=== PATIENT | female | born 1935 | race Caucasian/White ===

== ENCOUNTER 2016-12-02 10:07 | Outpatient (CLI) | payer MEDICARE, OTHER ==
[~2016-12-02] VITALS: Ht 157.5 cm; Wt 59.5 kg
[~2016-12-02 10:07] MED LIST: AREDS; ARICEPT10 MG PO; LIPITOR20 MG PO; NAMENDA10 MG PO; NORVASC5 MG PO; SYNTHROID50 MCG PO; TOPROL XL100 MG PO
[2016-12-02 10:47] VITALS: BP 123/81; Ht 157.5 cm; Wt 59.5 kg
--- NOTE | 2016-12-02 11:00 | NUR ---
1053 PATIENT HERE TO RECIEVE A PROLIA INJECTION, HAS HAD BEFORE WITHOUT ADVERSE REACTION VOICED, GIVEN TO RIGHT UPPER ARM SUBQ TISSUE WITHOUT PROBLEMS AT THE SITE NOTED. WILL DISCHARGE HOME WITH COUSIN. STABLE.
== END 2016-12-02 11:00 ==
LOC: D.OPS 10:07
DX: M81.0 Age-related osteoporosis without current pathological fracture (principal)

== ENCOUNTER 2017-06-09 09:30 | Outpatient (CLI) | payer MEDICARE, OTHER ==
[~2017-06-09] VITALS: Ht 157.5 cm; Wt 63.6 kg
[2017-06-09 10:25] VITALS: Ht 157.5 cm; Wt 63.6 kg
--- NOTE | 2017-06-09 10:33 | NUR ---
1020- PROLIA INJECTION GIVEN IN LEFT ARM LOT#: [id number] EXP:07/12
== END 2017-06-09 10:33 | disposition home or self-care (01) ==
LOC: D.OPS 09:30
DX: M81.0 Age-related osteoporosis without current pathological fracture (principal)

== ENCOUNTER 2017-08-18 11:47 | Emergency (ER) | payer MEDICARE, OTHER ==
[2017-06-09 10:25] VITALS: BMI 25.6
== END 2017-08-18 15:06 | disposition home or self-care (01) ==
LOC: D.ER 11:47
DX: S02.40CA Maxillary fracture, right side, initial encounter for closed fracture (principal); S02.81XA Fracture of other specified skull and facial bones, right side, initial encounter for closed fracture; S52.531A Colles' fracture of right radius, initial encounter for closed fracture; W01.0XXA Fall on same level from slipping, tripping and stumbling without subsequent striking against object, initial encounter; Y93.89 Activity, other specified; Y92.9 Unspecified place or not applicable

== ENCOUNTER 2017-08-29 08:45 | Inpatient (IN) | payer MEDICARE, OTHER ==
[~2017-08-29] VITALS: Ht 167.6 cm; Wt 68.0 kg
--- NOTE | ~2017-08-29 | HP ---
PATIENT: LULA HOLLIS MEDICAL RECORD: [id number] ACCOUNT: [id number] LOCATION:D.MS [facility] : 33 ADMISSION DATE: 08/29/17 HISTORY AND PHYSICAL EXAMINATION DATE OF ADMISSION: 08/29/2017 CHIEF COMPLAINT: Fall. HISTORY OF PRESENT ILLNESS: This is an 82-year-old female, who is a resident of [place]. She has had multiple falls recently. She fell on 08/18/2017, and suffered a right Colles' fracture and facial bone fractures. She has severe dementia. She fell again on 08/29/2017, just was not acting her usual self. She was brought in to the Emergency Department. X-rays were okay except CT of the brain done compared with previous on 08/18/2017, showed disproportionate enlargement of the lateral ventricles suggesting normal pressure hydrocephalus. There was a right parietal scalp hematoma without fracture and possibility of NPH. She is admitted and neurosurgery will be consulted. PAST MEDICAL AND SURGICAL HISTORY: She has dementia, hyperlipidemia, hypertension, and hypothyroidism. PAST SURGICAL HISTORY: Cataract repair. ALLERGIES: None known. HOME MEDICATIONS: Include memantine 10 mg 1 pill twice a day, amlodipine 5 mg once a day, donepezil 10 mg once a day, atorvastatin 40 mg once a day, metoprolol XL 100 once a day, and levothyroxine 50 mcg once a day. HABITS: Never smoked. No alcohol or drugs. SOCIAL HISTORY: She is , retired, living in [place]. REVIEW OF SYSTEMS: GENERAL: She is losing weight because she is not remembering to eat anymore. HEENT: No particular sinus or allergy problems. She did have a recent fall and has fractures of facial bones, especially around the right eye. RESPIRATORY: No history of asthma or emphysema. CARDIAC: No chest pain, palpitations, or history of heart disease. GASTROINTESTINAL: No diarrhea, constipation, or reflux. GENITOURINARY: No significant trouble there. MUSCULOSKELETAL: No significant arthritis. Again, she had a recent fall and has a right Colles's fracture and has a splint placed by Dr. Abad. NEUROLOGIC: No migraine headaches. No seizures. She does have dementia. PSYCHIATRIC: No depression or melancholia. PHYSICAL EXAMINATION: VITAL SIGNS: She is afebrile. Blood pressure is fine. Respirations and heart rate are all fine. GENERAL: She is resting comfortably. She is in no acute distress at this time. She is under the influence of Ativan to help with restlessness that she was exhibiting. HEENT: She has fading ecchymosis around the right eye. She has known facial fractures. HISTORY AND PHYSICAL [id number] [place] NECK: Supple. HEART: Regular rate and rhythm without murmur. LUNGS: Clear. ABDOMEN: Soft. EXTREMITIES: She has a splint on her right forearm and wrist. There is no edema noted anywhere. LABORATORY DATA: CK is 89, CK-MB 1.4, troponin less than 0.017. Urinalysis is all okay. CBC with a white count of 14,400, hemoglobin 13.9, hematocrit 42, normal platelets. Basic metabolic panel is all normal except BUN little elevated at 28. Liver functions are all normal. X-ray of the pelvis shows no acute abnormalities. CT of the cervical spine shows no acute fracture or dislocation and CT of the head without contrast compared to last done on 08/18/2017, shows disproportionate enlargement of the lateral ventricles relative to the sulci, which can be seen in the setting of normal pressure hydrocephalus in the proper clinical setting, otherwise no acute intracranial abnormality or significant change since last comparison. ASSESSMENT: 1. Frequent falls. 2. Dementia. 3. Hydrocephalus suggesting possible normal pressure hydrocephalus. PLAN: We will admit. We will get a lumbar puncture including opening pressure. We will consult Dr. Pearson for possible normal pressure hydrocephalus and treatment for that. Other tests and procedures as warranted. TRANSINT:[id number] Voice Confirmation ID: [id number] DOCUMENT ID: [id number] DARRIN GATICA MD at 0749 CC: [id number] DICTATION DATE: 08/30/17 0053 NITRO WORKER: 08/30/17 0257 ADM IN [facility] [address] [place] [address]
[2017-08-29 11:36] LABS: BASOPHILS 0.2 % (0-2); EOSINOPHILS 0.3 % (0-7); HEMATOCRIT 42.2 % (36.0-48.0); HEMOGLOBIN 13.9 g/dL (12-16); IMMATURE GRANULOCYTES 0.3 % (0-5); LYMPHOCYTES 8.5 % (15-50); MCHC 32.9 g/dL (31.0-37.0); MEAN PLATELET VOLUME 9.4 fL (7.4-10.4); MONOCYTES 7.2 % (2-11); NEUTROPHILS 83.5 % (40-80); PLATELET COUNT 298 10x3/uL (130-400); RBC 4.35 10x6/uL (4.00-5.40); RDW 13.5 % (11.5-14.5); WBC 14.4 10x3/uL (4.8-10.8)
[2017-08-29 12:19] LABS: ALBUMIN 3.2 g/dL (3.4-5.0); ALKALINE PHOSPHATASE 81 U/L (46-116); ALT (SGPT) 22 U/L (10-68); BILIRUBIN - TOTAL 0.65 mg/dL (0.2-1.3); CALC OSMOLALITY 295 mosm/kg (275-300); CALCIUM 9.6 mg/dL (8.5-10.1); CHLORIDE - SERUM 105 mmol/L (98-107); CREATININE - SERUM 1.2 mg/dL (0.6-1.3); GLUCOSE 116 mg/dL (74-106); PROTEIN - SERUM 7.1 g/dL (6.4-8.2); SODIUM 145 mmol/L (136-145); UREA NITROGEN 28 mg/dL (7-18); eGFR NON AFRICAN AMERICAN 45 mL/min (90-120)
[2017-08-29 12:30] LABS: CKMB 0.8 U/L (0.0-3.6); CREATINE KINASE 44 UL (21-215)
[2017-08-29 12:40] LABS: TROPONIN-I < 0.017 ng/mL (0.000-0.060)
[2017-08-29 14:44] LABS: APPEARANCE CLEAR (CLEAR); BILIRUBIN NEGATIVE (NEGATIVE); COLOR DK YELLOW (YELLOW); GLUCOSE NEGATIVE (NEGATIVE); KETONE LARGE mg/dL (NEGATIVE); NITRITE NEGATIVE (NEGATIVE); PROTEIN NEGATIVE (NEGATIVE); SPECIFIC GRAVITY 1.015 (1.005-1.020); UROBILINOGEN NORMAL (NORMAL)
[2017-08-29 15:33] LABS: CREATINE KINASE 59 UL (21-215)
[2017-08-29 15:37] LABS: TROPONIN-I < 0.017 ng/mL (0.000-0.060)
[2017-08-29 22:03] LABS: CKMB 1.4 U/L (0.0-3.6); CREATINE KINASE 89 UL (21-215)
[2017-08-29 22:10] LABS: TROPONIN-I < 0.017 ng/mL (0.000-0.060)
[2017-08-30 03:50] LABS: BASOPHILS 0.2 % (0-2); EOSINOPHILS 0.9 % (0-7); HEMATOCRIT 39.4 % (36.0-48.0); HEMOGLOBIN 13.1 g/dL (12-16); IMMATURE GRANULOCYTES 0.3 % (0-5); LYMPHOCYTES 13.9 % (15-50); MCH 31.8 pg (26.0-34.0); MCHC 33.2 g/dL (31.0-37.0); MCV 95.6 fL (80.0-100.0); MEAN PLATELET VOLUME 9.9 fL (7.4-10.4); MONOCYTES 10.5 % (2-11); NEUTROPHILS 74.2 % (40-80); PLATELET COUNT 278 10x3/uL (130-400); RBC 4.12 10x6/uL (4.00-5.40); RDW 13.5 % (11.5-14.5); WBC 11.4 10x3/uL (4.8-10.8)
[2017-08-30 04:19] LABS: CALC OSMOLALITY 280 mosm/kg (275-300); CALCIUM 8.4 mg/dL (8.5-10.1); CARBON DIOXIDE 25.9 mmol/L (21.0-32.0); CHLORIDE - SERUM 105 mmol/L (98-107); CKMB 0.9 U/L (0.0-3.6); CREATINE KINASE 76 UL (21-215); CREATININE - SERUM 0.8 mg/dL (0.6-1.3); GLUCOSE 91 mg/dL (74-106); POTASSIUM - SERUM 3.4 mmol/L (3.5-5.1); SODIUM 140 mmol/L (136-145); TROPONIN-I < 0.017 ng/mL (0.000-0.060); UREA NITROGEN 19 mg/dL (7-18); eGFR NON AFRICAN AMERICAN 72 mL/min (90-120)
[2017-08-30 08:00] VITALS: BP 128/59; BMI 24.2
[2017-08-30 13:45] VITALS: BP 165/62
[2017-08-30 14:00] VITALS: BP 146/50
[2017-08-30 14:12] VITALS: Ht 167.6 cm; Wt 68.0 kg
[2017-08-30 14:15] VITALS: BP 137/54
[2017-08-30 17:13] VITALS: BP 154/58
[2017-08-30 22:12] VITALS: BP 116/53
[2017-08-31 01:36] VITALS: BP 112/64
[2017-08-31 04:46] VITALS: BP 126/56
[2017-08-31 10:33] VITALS: BP 97/45
[2017-08-31 11:35] VITALS: BP 104/56
[2017-08-31 16:18] VITALS: BP 144/57
[2017-08-31 23:49] VITALS: BP 142/53
[2017-09-01 05:25] VITALS: BP 147/51
[2017-09-01 09:27] VITALS: BP 140/53
[2017-09-01 11:34] VITALS: BP 140/60
[2017-09-01 12:26] VITALS: BP 140/60
[2017-09-01 15:42] VITALS: BP 138/62
[2017-09-02 02:43] VITALS: BP 141/73
[2017-09-02 05:13] VITALS: BP 152/72
[2017-09-02 10:02] VITALS: BP 147/54
[2017-09-02 16:30] VITALS: BP 121/46
[2017-09-02 22:06] VITALS: BP 142/62
[2017-09-03 05:40] VITALS: BP 152/72
[2017-09-03 08:21] VITALS: BP 118/68
[2017-09-03 16:23] VITALS: BP 140/56
[2017-09-03 20:30] VITALS: BP 146/50
[2017-09-04 00:30] VITALS: BP 123/53
[2017-09-04 04:30] VITALS: BP 122/45
[2017-09-04 09:14] VITALS: BP 133/40
[2017-09-04 16:11] VITALS: BP 144/61
[2017-09-04 20:00] VITALS: BP 139/58
[2017-09-05] VITALS: BP 126/69
[2017-09-05 04:00] VITALS: BP 149/77
[2017-09-05 08:04] VITALS: BP 148/55
[2017-09-05 12:11] VITALS: BP 139/54
[2017-09-05 16:24] VITALS: BP 141/58
[2017-09-05 22:08] VITALS: BP 116/49
[2017-09-06 04:55] VITALS: BP 184/49
[2017-09-06 07:34] VITALS: BP 150/59
[2017-09-06 12:38] VITALS: BP 123/60
[2017-09-06 15:37] VITALS: BP 149/62
[2017-09-06 22:11] VITALS: BP 142/56
[2017-09-07 01:48] VITALS: BP 144/54
[2017-09-07 05:29] VITALS: BP 126/43
[2017-09-07 08:34] VITALS: BP 134/49
[2017-09-07 12:08] VITALS: BP 131/43
[2017-09-07 15:49] VITALS: BP 138/52
== END 2017-09-07 18:45 | DRG 57 ==
LOC: D.ER 08:45 → D.MS 13:04 → D.SDCHOLD 13:04 → D.ER 19:22 → D.MS 19:22 → D.SDCHOLD 08-30 05:29 → D.MS 08-30 05:29
PROVIDERS: Family Medicine
PROC: B02 Imaging, Central Nervous System, Computerized Tomography (CT Scan) (ICD-10-PCS; principal; 2017-09-02)
DX: G91.2 (Idiopathic) normal pressure hydrocephalus (principal); S00.03XA Contusion of scalp, initial encounter; W18.2XXA Fall in (into) shower or empty bathtub, initial encounter; S05.11XA Contusion of eyeball and orbital tissues, right eye, initial encounter; F03.90 Unspecified dementia, unspecified severity, without behavioral disturbance, psychotic disturbance, mood disturbance, and anxiety; I10 Essential (primary) hypertension; E03.9 Hypothyroidism, unspecified; E78.5 Hyperlipidemia, unspecified; R40.2143 Coma scale, eyes open, spontaneous, at hospital admission; R40.2243 Coma scale, best verbal response, confused conversation, at hospital admission

== ENCOUNTER 2017-09-24 14:50 | Inpatient (IN) | payer MEDICARE, OTHER ==
[~2017-09-24] VITALS: Ht 160 cm; Wt 47.1 kg
--- NOTE | ~2017-09-24 | OP ---
PATIENT NAME: LULA HOLLIS MEDICAL RECORD: [id number] :33 LOCATION:D.MS [id number] ADMISSION DATE:09/24/17 SURGEON: LUDIVINA ASHLEY MD DATE OF OPERATION: 09/24/2017 PREOPERATIVE DIAGNOSIS: Normal pressure hydrocephalus. POSTOPERATIVE DIAGNOSIS: Normal pressure hydrocephalus. PROCEDURE: Creation of ventriculoperitoneal shunt with level I valve. SURGEON: Ludivina Ashley MD DESCRIPTION AND TECHNIQUIE: After induction of general endotracheal anesthesia, the patient was positioned supine on the operating table. The scalp, neck, chest, abdomen were prepped and draped in usual sterile fashion. Three separate skin incisions were carried out, one over the right frontal Kochers point, the second one over the right mastoid and the third just to the left of midline above the umbilicus. A craniotome was used to create a dimitri hole. A counterincision was made over the right mastoid and an incision just by the left umbilicus. Bovie cautery was used to dissect through the subcutaneous fat. The anterior rectus sheath was incised with Metzenbaum scissors. Rectus muscles was spread, posterior rectus sheath was incised, peritoneum was incised as well, and several loops of small bowel were used to identify the peritoneal cavity. Next, a peritoneal catheter was tunneled from the cranial incision to the counterincision and from counterincision to the abdominal incision. Next a brain needle was used to cannulate the right frontal horn of the ventricle. Brisk egress of CSF was accomplished through the brain needle. The ventricular catheter was tunneled through the same tunnel. There was brisk egress of CSF from the peritoneal catheter. Peritoneal catheter was deposited into the peritoneal cavity. The peritoneum was closed with pursestring suture of #3-0 Vicryl suture. The rectus sheath, anterior and posterior were closed with 2-0 Vicryl suture, the subcutaneous layer was closed with 3-0 Vicryl suture, the skin was closed with fernando. At the counterincision, the subdermal layer was closed with interrupted 3-0 Vicryl suture, the skin was closed with fernando. At the cranial incision, the galea was reapproximated with interrupted 2-0 Vicryl suture. The skin was closed with fernando. A sterile dressing was applied to the wound. The patient was awakened in good condition and taken to recovery. All counts were reported as correct. Estimated blood loss was minimal. TRANSINT:[id number] Voice Confirmation ID: [id number] DOCUMENT ID: [id number] LUDIVINA ASHLEY MD at 1134 CC: [id number] DICTATION DATE: 10/07/17 1110 ORTHOPEDIC RADIOLOGIC TECHNOLOGIST: 10/07/17 1139 DIS IN 10/06/17 [place] [id number] [place] [id number]
--- NOTE | ~2017-09-24 | EC ---
PATIENT:LULA HOLLIS DATE OF SERVICE: 09/24/17 SEX: F MEDICAL RECORD: [id number] DATE OF : 31 LOCATION:D.MS [id number] AGE OF PATIENT: 82 ADMISSION DATE: 09/24/17 REFERRING PHYSICIAN: INTERPRETING PHYSICIAN: JONATHAN CARLIN MD ECHOCARDIOGRAM REPORT ECHO CHARGES CLINICAL DIAGNOSIS: ECHOCARDIOGRAPHIC MEASUREMENTS (adult normal given) AC root (d.<3.7cm) cm LV Septum d (<1.2 cm> cm Valve Excursion cm LV Septum (systole) cm Left Atria (s.<4.0cm> cm LVPW d(<1.2cm) cm RV (d.<2.3cm) cm LVPW (sytole) cm LV diastole(<5.6CM) cm MV E-F(>70mm/sec) cm LV systole cm LVOT Diameter cm MV exc.(>10mm) cm Est.ejection fraction (50-75%) % Pericardial Effusion DOPPLER: LVIT cm/sec A cm/sec E cm/sec LA cm/sec RVSP mmHg LVOT cm/sec AOP1/2T m/s Asc. Ao cm/sec RVOT cm/sec RA cm/sec PA cm/sec AV Gradient Peak mmHg AV Mean mmHg AV Area cm MV Gradient Peak mmHg MV Mean mmHg MV Area cm COMMENTS: Street Light Repairer Helper: Bridge Engineer: JAVI DATE OF SERVICE: 09/30/2017 Echocardiogram FINDINGS: 1. Left ventricular chamber size is within normal limits. Left ventricular systolic function is normal. Overall ejection fraction estimated at 55%. 2. Left atrium, right atrium, and right ventricular chamber sizes are within normal limits. 3. Valvular structures have normal structure and motion. ECHOCARDIOGRAM REPORT [id number] LULA HOLLIS 4. Doppler interrogation only reveals mild mitral regurgitation, mild tricuspid regurgitation, no other valvular insufficiency or stenosis and pulmonary systolic pressure is normal estimated 30 mmHg. 5. No evidence of pericardial effusion or left ventricular thrombus. TRANSINT:[id number] Voice Confirmation ID: [id number] DOCUMENT ID: [id number] JONATHAN CARLIN MD at 1153 CC: [id number] DICTATION DATE: 09/30/17 1010 CUSTOMER SOLUTIONS SUPERVISOR: 09/30/17 1029 ADM IN [address] [place] [address]
--- NOTE | ~2017-09-24 | CN ---
PATIENT NAME:LULA HOLLIS MEDICAL RECORD: [id number] : 31 LOCATION:D.MS [id number] ADMIT DATE: 09/24/17 ACCOUNT: [id number] CONSULTING PHYSICIAN: JONATHAN CARLIN MD REFERRING PHYSICIAN: DARRIN GATICA MD DATE OF CONSULTATION: 09/30/2017 DIAGNOSES: 1. Nonsustained ventricular tachycardia, 8-beat run, asymptomatic. 2. Frequent falls. 3. Normal pressure hydrocephalus. HISTORY OF PRESENT ILLNESS: Ms. Hollis presents with frequent falls, found to have normal pressure hydrocephalus. She is on telemetry, found to have one 8-beat run of nonsustained ventricular tachycardia. She has normal electrolytes and was asymptomatic with this. REVIEW OF SYSTEMS: The patient reports easy bruising but reports no swollen glands. The patient reports no fever, no night sweats, no significant weight gain, no significant weight loss. No significant exercise tolerance. The patient reports no dry eyes, no irritation, no vision change. Patient reports no difficulty hearing and no ear pain. Patient reports no frequent nose bleeds or nose and sinus problems. Patient reports on arm pain on exertion. No shortness of breath while lying down. No history of heart murmur. Patient reports no cough, no wheezing or coughing up blood. Patient reports no abdominal pain, no vomiting. Normal appetite. No diarrhea and not vomiting blood. No nausea and no constipation. Patient reports no incontinence. No difficulty urinating. No hematuria. No increased frequency. Patient reports no muscle aches. No weakness, no arthralgias, no back pain. No swelling of the extremities. Patient reports no abnormal mole, no jaundice, no rashes. Reports no loss of consciousness. No weakness and no numbness. No seizures, dizziness, or headaches. The patient reports no depression, no sleep disturbance, feeling safe in a relationship and no alcohol abuse. Patient reports on fatigue. Reports no runny nose or sinus pressure. No itching, no hives, and no frequent sneezing. PHYSICAL EXAMINATION: GENERAL APPEARANCE: Well nourished, well developed, appears stated age. Level of distress, comfortable. PSYCHIATRIC: Mental status, alert, normal affect. Orientation, oriented to time, place and person. EYES: Lids and conjunctiva, noninjected. No discharge, no pallor. ENT: Lips, teeth, gums, normal dentition. Oropharynx, no cyanosis, no pallor. NECK: Carotid arteries, bilateral normal upstroke, no bruits, no thrills. JUGULAR VEINS: No jugular venous pressure or distention. CERVICAL LYMPH NODES: Nontender, nonenlarged. THYROID: Not enlarged. Nontender. No nodules. LUNGS: Respiratory effort, unlabored. CHEST: Normal curvature. No thoracic deformity. No chest wall tenderness. Percussion, resonant. Auscultation, clear. No wheezes, no rales, no rhonchi. CARDIOVASCULAR: Precordial exam, nondisplaced. No heaves or pericardial thrills. Rate and rhythm, regular. Heart sounds, normal S1, normal S2. No S3, no gallop, no rub. Systolic murmur, not heard. Diastolic murmur, not heard. EXTREMITIES: No cyanosis, no edema. Peripheral pulses, full and equal in all extremities, except as noted. No bruits appreciated. CONSULT REPORT [id number] LULA HOLLIS ABDOMEN: Soft, nondistended. Normal aorta. No bruit. Nontender. No masses. Liver, nontender, no hepatomegaly. Spleen, nontender, no splenomegaly. MUSCULOSKELETAL: No joint tenderness. No joint swelling. No erythema. NEUROLOGICAL: Normal gait, normal strength, normal tone. SKIN: Warm and dry. OVERAL IMPRESSION: Nonsustained ventricular tachycardia. PLAN: At this time, we will get an echocardiogram, other than that no other cardiac workup treatment is necessary. Continue telemetry. Continue monitoring for any further dysrhythmias. TRANSINT:[id number] Voice Confirmation ID: [id number] DOCUMENT ID: [id number] JONATHAN CARLIN MD at 1153 CC: [id number] DICTATION DATE: 09/30/17219 DIRECTOR OF PARKS AND RECREATION: 09/30/17 025 ADM IN [place] [id number] [facility] [place] [address]
[2017-09-24 16:23] LABS: BASOPHILS 0.3 % (0-2); EOSINOPHILS 0.9 % (0-7); HEMATOCRIT 44.3 % (36.0-48.0); HEMOGLOBIN 14.3 g/dL (12-16); IMMATURE GRANULOCYTES 0.3 % (0-5); LYMPHOCYTES 12.1 % (15-50); MCH 31.4 pg (26.0-34.0); MCHC 32.3 g/dL (31.0-37.0); MCV 97.4 fL (80.0-100.0); MEAN PLATELET VOLUME 10.1 fL (7.4-10.4); MONOCYTES 8.8 % (2-11); NEUTROPHILS 77.6 % (40-80); PLATELET COUNT 230 10x3/uL (130-400); RBC 4.55 10x6/uL (4.00-5.40); RDW 14.4 % (11.5-14.5); WBC 7.6 10x3/uL (4.8-10.8)
[2017-09-24 16:27] LABS: APPEARANCE HAZY (CLEAR); COLOR AMBER (YELLOW); NITRITE NEGATIVE (NEGATIVE)
[2017-09-24 16:28] LABS: BILIRUBIN 1+ (NEGATIVE); GLUCOSE NEGATIVE (NEGATIVE); KETONE LARGE mg/dL (NEGATIVE); PROTEIN TRACE mg/dL (NEGATIVE)
[2017-09-24 16:32] LABS: BACTERIA MODERATE /hpf (NONE SEEN); EPITHELIAL CELLS 0-5 /hpf (0-5); RED CELLS - URINE 0-5 /hpf (0-5); YEAST >1+ /hpf (NONE SEEN)
[2017-09-24 16:37] LABS: ALBUMIN 3.4 g/dL (3.4-5.0); ANION GAP 16.5 mmol/L (8-16); BILIRUBIN - TOTAL 0.9 mg/dL (0.2-1.3); CARBON DIOXIDE 26.2 mmol/L (21.0-32.0); PROTEIN - SERUM 7.6 g/dL (6.4-8.2)
[2017-09-24 16:39] LABS: POTASSIUM - SERUM 2.7 mmol/L (3.5-5.1)
[2017-09-25 05:52] LABS: BASOPHILS 0.7 % (0-2); EOSINOPHILS 3.6 % (0-7); HEMATOCRIT 39.7 % (36.0-48.0); HEMOGLOBIN 12.8 g/dL (12-16); IMMATURE GRANULOCYTES 0.2 % (0-5); LYMPHOCYTES 25.6 % (15-50); MCH 31.4 pg (26.0-34.0); MCHC 32.2 g/dL (31.0-37.0); MCV 97.3 fL (80.0-100.0); MEAN PLATELET VOLUME 9.9 fL (7.4-10.4); NEUTROPHILS 57.9 % (40-80); PLATELET COUNT 202 10x3/uL (130-400); RBC 4.08 10x6/uL (4.00-5.40); RDW 14.5 % (11.5-14.5); WBC 5.8 10x3/uL (4.8-10.8)
[2017-09-25 06:08] LABS: ANION GAP 16.4 mmol/L (8-16); BILIRUBIN - TOTAL 0.7 mg/dL (0.2-1.3); CALCIUM 7.8 mg/dL (8.5-10.1); CARBON DIOXIDE 26.8 mmol/L (21.0-32.0); CREATININE - SERUM 0.8 mg/dL (0.6-1.3); PROTEIN - SERUM 6.3 g/dL (6.4-8.2)
[2017-09-25 06:11] LABS: POTASSIUM - SERUM 3.2 mmol/L (3.5-5.1)
[2017-09-25 14:56] VITALS: BP 174/63
[2017-09-25 22:35] VITALS: BP 122/86
[2017-09-26 01:02] VITALS: BP 140/65
[2017-09-26 06:05] LABS: BASOPHILS 0.4 % (0-2); EOSINOPHILS 2.9 % (0-7); HEMOGLOBIN 12.7 g/dL (12-16); IMMATURE GRANULOCYTES 0.2 % (0-5); MCH 30.7 pg (26.0-34.0); MCHC 31.8 g/dL (31.0-37.0); MCV 96.6 fL (80.0-100.0); MEAN PLATELET VOLUME 10.4 fL (7.4-10.4); MONOCYTES 5.9 % (2-11); NEUTROPHILS 78.6 % (40-80); PLATELET COUNT 214 10x3/uL (130-400); RBC 4.14 10x6/uL (4.00-5.40); RDW 14.4 % (11.5-14.5); WBC 5.6 10x3/uL (4.8-10.8)
[2017-09-26 06:09] VITALS: BP 146/62
[2017-09-26 06:19] LABS: CALCIUM 8.5 mg/dL (8.5-10.1); CARBON DIOXIDE 27.5 mmol/L (21.0-32.0); CREATININE - SERUM 0.8 mg/dL (0.6-1.3)
[2017-09-26 06:22] LABS: ANION GAP 14.5 mmol/L (8-16)
[2017-09-26 08:26] VITALS: BP 96/77
[2017-09-26 16:40] VITALS: BP 148/63
[2017-09-26 23:40] VITALS: BP 140/63
[2017-09-27 05:25] LABS: BASOPHILS 0.5 % (0-2); EOSINOPHILS 3.8 % (0-7); HEMATOCRIT 43.2 % (36.0-48.0); HEMOGLOBIN 14.1 g/dL (12-16); IMMATURE GRANULOCYTES 0.5 % (0-5); LYMPHOCYTES 11.6 % (15-50); MCH 31.5 pg (26.0-34.0); MCHC 32.6 g/dL (31.0-37.0); MCV 96.4 fL (80.0-100.0); MEAN PLATELET VOLUME 10.5 fL (7.4-10.4); MONOCYTES 6.6 % (2-11); PLATELET COUNT 229 10x3/uL (130-400); RBC 4.48 10x6/uL (4.00-5.40); RDW 14.5 % (11.5-14.5)
[2017-09-27 05:39] LABS: ANION GAP 11.9 mmol/L (8-16); CALCIUM 8.8 mg/dL (8.5-10.1); CARBON DIOXIDE 29.9 mmol/L (21.0-32.0); CREATININE - SERUM 0.9 mg/dL (0.6-1.3)
[2017-09-27 06:04] LABS: POTASSIUM - SERUM 2.8 mmol/L (3.5-5.1)
[2017-09-27 06:13] VITALS: BP 156/97
[2017-09-27 08:33] VITALS: BP 144/64
[2017-09-27 08:59] VITALS: BMI 21.4
[2017-09-27 23:07] VITALS: BP 138/48
[2017-09-28 05:23] VITALS: BP 154/64
[2017-09-28 05:43] LABS: BASOPHILS 0.6 % (0-2); EOSINOPHILS 6.8 % (0-7); HEMATOCRIT 45.3 % (36.0-48.0); HEMOGLOBIN 14.7 g/dL (12-16); IMMATURE GRANULOCYTES 0.4 % (0-5); LYMPHOCYTES 13.4 % (15-50); MCH 31.6 pg (26.0-34.0); MCHC 32.5 g/dL (31.0-37.0); MCV 97.4 fL (80.0-100.0); MEAN PLATELET VOLUME 10.5 fL (7.4-10.4); MONOCYTES 11.1 % (2-11); NEUTROPHILS 67.7 % (40-80); PLATELET COUNT 250 10x3/uL (130-400); RBC 4.65 10x6/uL (4.00-5.40); RDW 14.6 % (11.5-14.5); WBC 4.9 10x3/uL (4.8-10.8)
[2017-09-28 06:03] LABS: ANION GAP 15.2 mmol/L (8-16); CALCIUM 8.2 mg/dL (8.5-10.1); CREATININE - SERUM 0.8 mg/dL (0.6-1.3); POTASSIUM - SERUM 3.2 mmol/L (3.5-5.1)
[2017-09-28 08:05] VITALS: BP 102/78
[2017-09-28 12:35] VITALS: BP 101/58
[2017-09-28 16:14] VITALS: BP 154/49
[2017-09-28 22:09] VITALS: BP 156/48
[2017-09-29 01:29] VITALS: BP 154/54
[2017-09-29 04:48] LABS: BASOPHILS 0.4 % (0-2); EOSINOPHILS 5.8 % (0-7); HEMATOCRIT 42.7 % (36.0-48.0); HEMOGLOBIN 13.8 g/dL (12-16); IMMATURE GRANULOCYTES 0.4 % (0-5); LYMPHOCYTES 15.6 % (15-50); MCH 31.2 pg (26.0-34.0); MCHC 32.3 g/dL (31.0-37.0); MCV 96.6 fL (80.0-100.0); MEAN PLATELET VOLUME 10.2 fL (7.4-10.4); MONOCYTES 13.3 % (2-11); NEUTROPHILS 64.5 % (40-80); PLATELET COUNT 213 10x3/uL (130-400); RBC 4.42 10x6/uL (4.00-5.40); RDW 14.5 % (11.5-14.5); WBC 5.3 10x3/uL (4.8-10.8)
[2017-09-29 05:13] LABS: ANION GAP 13.6 mmol/L (8-16); CALCIUM 8.3 mg/dL (8.5-10.1); CARBON DIOXIDE 27.2 mmol/L (21.0-32.0); CREATININE - SERUM 0.8 mg/dL (0.6-1.3); POTASSIUM - SERUM 3.8 mmol/L (3.5-5.1)
[2017-09-29 07:57] VITALS: BP 149/62
[2017-09-29 13:07] VITALS: BP 123/63
[2017-09-29 16:18] VITALS: BP 143/55
[2017-09-29 20:00] VITALS: BP 136/49
[2017-09-30 04:00] VITALS: BP 99/53
[2017-09-30 05:06] LABS: CALCIUM 8.5 mg/dL (8.5-10.1); CARBON DIOXIDE 26.3 mmol/L (21.0-32.0); CREATININE - SERUM 0.9 mg/dL (0.6-1.3); POTASSIUM - SERUM 3.3 mmol/L (3.5-5.1)
[2017-09-30 05:07] LABS: BASOPHILS 0.5 % (0-2); EOSINOPHILS 6.4 % (0-7); HEMATOCRIT 43.1 % (36.0-48.0); HEMOGLOBIN 14.2 g/dL (12-16); IMMATURE GRANULOCYTES 0.2 % (0-5); LYMPHOCYTES 22.5 % (15-50); MCH 31.8 pg (26.0-34.0); MCHC 32.9 g/dL (31.0-37.0); MCV 96.4 fL (80.0-100.0); MONOCYTES 12.6 % (2-11); NEUTROPHILS 57.8 % (40-80); PLATELET COUNT 220 10x3/uL (130-400); RBC 4.47 10x6/uL (4.00-5.40); RDW 14.5 % (11.5-14.5); WBC 6.3 10x3/uL (4.8-10.8)
[2017-09-30 07:44] VITALS: BP 145/60
[2017-09-30 12:21] VITALS: BP 113/53
[2017-09-30 15:55] VITALS: BP 135/87
[2017-09-30 20:00] VITALS: BP 151/55
[2017-10-01] VITALS (13 sets, daily range): BP systolic 113–155; BP diastolic 52–101; Ht 160 cm; Wt 47.1 kg
[2017-10-02] VITALS (19 sets, daily range): BP systolic 125–167; BP diastolic 54–105
[2017-10-02 07:01] LABS: BASOPHILS 0.1 % (0-2); HEMATOCRIT 40.6 % (36.0-48.0); HEMOGLOBIN 13.4 g/dL (12-16); IMMATURE GRANULOCYTES 0.3 % (0-5); LYMPHOCYTES 13.1 % (15-50); MCH 31.9 pg (26.0-34.0); MCV 96.7 fL (80.0-100.0); MEAN PLATELET VOLUME 10.5 fL (7.4-10.4); MONOCYTES 10.1 % (2-11); NEUTROPHILS 74.4 % (40-80); RDW 14.6 % (11.5-14.5); WBC 7.2 10x3/uL (4.8-10.8)
[2017-10-02 07:02] LABS: PLATELET COUNT 173 10x3/uL (130-400)
[2017-10-02 08:12] LABS: ALBUMIN 2.7 g/dL (3.4-5.0); ANION GAP 14.7 mmol/L (8-16); BILIRUBIN - TOTAL 0.39 mg/dL (0.2-1.3); CALCIUM 7.7 mg/dL (8.5-10.1); CARBON DIOXIDE 22.4 mmol/L (21.0-32.0); CREATININE - SERUM 0.9 mg/dL (0.6-1.3); POTASSIUM - SERUM 3.1 mmol/L (3.5-5.1); PROTEIN - SERUM 6.3 g/dL (6.4-8.2)
[2017-10-03] VITALS (18 sets, daily range): BP systolic 107–165; BP diastolic 52–105
[2017-10-03 06:55] LABS: BASOPHILS 0.2 % (0-2); EOSINOPHILS 1.8 % (0-7); HEMATOCRIT 38.6 % (36.0-48.0); HEMOGLOBIN 12.7 g/dL (12-16); IMMATURE GRANULOCYTES 0.2 % (0-5); LYMPHOCYTES 17.4 % (15-50); MCH 31.3 pg (26.0-34.0); MCHC 32.9 g/dL (31.0-37.0); MCV 95.1 fL (80.0-100.0); MEAN PLATELET VOLUME 9.8 fL (7.4-10.4); MONOCYTES 13.9 % (2-11); NEUTROPHILS 66.5 % (40-80); RBC 4.06 10x6/uL (4.00-5.40); RDW 14.2 % (11.5-14.5); WBC 5.4 10x3/uL (4.8-10.8)
[2017-10-03 06:58] LABS: PLATELET COUNT 208 10x3/uL (130-400)
[2017-10-03 07:04] LABS: CALCIUM 7.5 mg/dL (8.5-10.1); CARBON DIOXIDE 23.7 mmol/L (21.0-32.0); CREATININE - SERUM 0.8 mg/dL (0.6-1.3); POTASSIUM - SERUM 3.7 mmol/L (3.5-5.1)
[2017-10-04 04:00] VITALS: BP 154/60
[2017-10-04 09:39] VITALS: BP 141/57
[2017-10-04 12:02] VITALS: BP 135/56
[2017-10-04 16:17] VITALS: BP 152/45
[2017-10-04 20:00] VITALS: BP 111/46
[2017-10-05 04:00] VITALS: BP 146/57
[2017-10-05 08:08] VITALS: BP 135/62
[2017-10-05 12:53] VITALS: BP 130/62
[2017-10-05 15:54] VITALS: BP 136/59
[2017-10-05 20:00] VITALS: BP 133/59
[2017-10-06] VITALS: BP 148/57
[2017-10-06 04:00] VITALS: BP 148/67
[2017-10-06 07:55] VITALS: BP 152/62
[2017-10-16 17:07] LABS: AMPHOTERICIN B MIC 1.0 ug/mL (())
== END 2017-10-06 16:52 | DRG 32 ==
LOC: D.ER 14:50 → D.ICU 19:26 → D.MS 19:26 → D.EDHOLD 19:26 → D.MS 09-25 10:07 → D.ICU 10-01 17:02 → D.MS 10-03 22:50
PROVIDERS: Family Medicine; Internal Medicine Nephrology; Neurological Surgery
PROC: 00160J6 Bypass Cerebral Ventricle to Peritoneal Cavity with Synthetic Substitute, Open Approach (ICD-10-PCS; principal; 2017-10-01 12:45)
DX: G91.2 (Idiopathic) normal pressure hydrocephalus (principal); N39.0 Urinary tract infection, site not specified; F05 Delirium due to known physiological condition; E87.6 Hypokalemia; F03.90 Unspecified dementia, unspecified severity, without behavioral disturbance, psychotic disturbance, mood disturbance, and anxiety; W05.0XXA Fall from non-moving wheelchair, initial encounter; S00.83XA Contusion of other part of head, initial encounter